=== PATIENT | female | born 1995 | race Caucasian/White ===

== ENCOUNTER 2017-11-09 09:32 | Emergency (ER) | payer SELFPAY ==
[~2017-11-09] VITALS: Ht 167.6 cm; Wt 68.0 kg
== END 2017-11-09 09:51 | disposition home or self-care (01) ==
LOC: ED 09:32
DX: S61.412A Laceration without foreign body of left hand, initial encounter (principal); W45.8XXA Other foreign body or object entering through skin, initial encounter; Y92.69 Other specified industrial and construction area as the place of occurrence of the external cause; Y99.0 Civilian activity done for income or pay

== ENCOUNTER 2017-11-09 11:53 | Emergency (ER) | payer OTHER ==
[~2017-11-09] VITALS: Ht 167.6 cm; Wt 68.0 kg
== END 2017-11-09 13:12 | disposition home or self-care (01) ==
LOC: ED 11:53
PROC: 0HQGXZZ Repair Left Hand Skin, External Approach (ICD-10-PCS; principal; 2017-11-09)
DX: S61.412A Laceration without foreign body of left hand, initial encounter (principal); Z90.49 Acquired absence of other specified parts of digestive tract; W45.8XXA Other foreign body or object entering through skin, initial encounter; Y92.69 Other specified industrial and construction area as the place of occurrence of the external cause; Y99.0 Civilian activity done for income or pay
CPT/HCPCS: 12002; 99282